=== PATIENT | female | born 1940 | race Caucasian/White ===

== ENCOUNTER 2021-08-09 11:24 | Inpatient (IN) | payer OTHER ==
[~2021-08-09] VITALS: Ht 167.6 cm; Wt 90.3 kg
[2021-08-09 13:17] LABS: HEMOGLOBIN 11.1 gm/dl (12.3-15.3); RED BLOOD COUNT 4.08 M/UL (4.00-5.10); WHITE BLOOD COUNT 4.7 K/UL (4.5-11.0)
[2021-08-09 13:41] LABS: BUN/CREATININE RATIO 15 (0-10)
[2021-08-09] MEDS ORDERED: TYLENOL EXTRA500 MG PO (18:16)
[2021-08-09] MEDS ORDERED: ALBUTEROL2.5 MG/3 M NEB (18:18)
[2021-08-09] MEDS ORDERED: PROAIR DIGIHAL90 MCG INH (18:18)
[2021-08-09] MEDS ORDERED: PLAVIX75 MG PO (18:19)
[2021-08-09] MEDS ORDERED: SYMBICORT 160-1 INHA INH (18:19)
[2021-08-09] MEDS ORDERED: CYCLOBENZAPRINE10 MG PO (18:20)
[2021-08-09] MEDS ORDERED: DRISDOL1250 MCG PO (18:21)
[2021-08-09] MEDS ORDERED: DOXYCYCLINE HY100 MG PO (18:21)
[2021-08-09] MEDS ORDERED: MUCUS RELIEF600 MG PO (18:21)
[2021-08-09] MEDS ORDERED: SINGULAIR10 MG PO (18:22)
[2021-08-09] MEDS ORDERED: IBU800 MG PO (18:22)
[2021-08-09] MEDS ORDERED: SPIRIVA RESPIMAT4 GM INH (18:23)
[2021-08-09] MEDS ORDERED: LORATADINE-D 21 EACH PO (18:24)
[2021-08-10 08:27] LABS: HEMOGLOBIN 10.8 gm/dl (12.3-15.3); RED BLOOD COUNT 3.95 M/UL (4.00-5.10); WHITE BLOOD COUNT 3.8 K/UL (4.5-11.0)
[2021-08-10 08:35] LABS: BUN/CREATININE RATIO 20 (0-10)
[2021-08-11 11:06] LABS: HEMOGLOBIN 11.5 gm/dl (12.3-15.3); RED BLOOD COUNT 4.13 M/UL (4.00-5.10); WHITE BLOOD COUNT 6.3 K/UL (4.5-11.0)
[2021-08-11 11:39] LABS: BUN/CREATININE RATIO 33 (0-10)
[2021-08-12 07:55] LABS: HEMOGLOBIN 11.7 gm/dl (12.3-15.3); RED BLOOD COUNT 4.33 M/UL (4.00-5.10); WHITE BLOOD COUNT 5.6 K/UL (4.5-11.0)
[2021-08-12 08:49] LABS: BUN/CREATININE RATIO 36 (0-10)
[2021-08-13 07:11] LABS: HEMOGLOBIN 11.2 gm/dl (12.3-15.3); RED BLOOD COUNT 4.12 M/UL (4.00-5.10); WHITE BLOOD COUNT 6.8 K/UL (4.5-11.0)
[2021-08-13 07:59] LABS: BUN/CREATININE RATIO 36 (0-10)
--- NOTE | 2021-08-13 12:59 | NUR ---
PT ROOM AIR SAT IS 88%. PT IS CURRENTLY ON O2 AT 3L NC
[2021-08-14 06:42] LABS: HEMOGLOBIN 11.9 gm/dl (12.3-15.3); RED BLOOD COUNT 4.33 M/UL (4.00-5.10); WHITE BLOOD COUNT 6.9 K/UL (4.5-11.0)
[2021-08-14 07:15] LABS: BUN/CREATININE RATIO 36 (0-10)
[2021-08-15 15:14] LABS: RED BLOOD COUNT 4.49 M/UL (4.00-5.10); WHITE BLOOD COUNT 6.8 K/UL (4.5-11.0)
[2021-08-15 15:57] LABS: BUN/CREATININE RATIO 35 (0-10)
[2021-08-15] MEDS ORDERED: CARAFATE 1 GM TA1 GM PO (17:14)
[2021-08-15] MEDS ORDERED: PROTONIX 40 MG40 M1 PO (17:18)
[2021-08-15] MEDS ORDERED: VIBRAMYCIN 100100 MG PO (17:18)
[2021-08-15] MEDS ORDERED: ELIQUIS2.5 MG PO (17:18)
[2021-08-15] MEDS ORDERED: OMNICEF 300 MG300 MG PO (17:18)
[2021-08-15] MEDS ORDERED: DECADRON6 MG PO (17:20)
[2021-08-15] MEDS ORDERED: PHENERGAN 12.12.5 M1 PO (17:27)
[2021-08-15] MEDS ORDERED: ZOFRAN 4 MG TAB4 MG PO (17:27)
[2021-08-15] MEDS ORDERED: LOPRESSOR 25 MG25 MG PO (17:31)
--- NOTE | 2021-08-16 02:47 | NUR ---
PATIENT WAS ARRANGED TO BE DC HOME WITH O2. [employer]SHIFT HAD ALL THE DISCHARGE DONE AND NOTIFIED FAMILY AND HH. UPON FAMILIES ARIVIAL IT WAS BROUGHT TO MY ATTENTION FROM THE TECH THAT THE O2 TANK THAT WAS DROPPED OFF FOR THE PATIENTS DC HOME WAS NOT WORKING. IT APPEARED TO BE COMPLETELY EMPTY. AFTER ATTEMPTING TO TURN THE TANK CRISTINA, USE THE ADJUSTMENT TOOL AND HAVE SEVERAL OTHER STAFF MEMBER ASSIST I CALLED THE COMPANY ON THE O2 TANK. I WAS INFORMED BY THAT COMPANY THAT THE PATIENT WAS NOT THEIR CLIENT. SO I PULLED THE HOME EQUIPTMENT INFO OFROM THE DC PACKET AND CONTACTED THE COMPANY. I SPOKE TO AN MICROBIOLOGY SOIL SCIENTIST THAT TOOK ALL THE INFO AND SAID I WOULD RECIEVE A CALL BACK WITH IN 30 MINUTES. I CONTACTED [employer] TO CALL [employer] TO INFORM OF SITUATION. THE GOAL WAS TO GET PATIENT HER O2 AND DC HOME. ONCE THE COMPANY CALLED BACK THEY INFORMED ME THAT SOMEONE WOULD BE HERE IN AN HOUR WITH A NEW TANK. I CONTACTED FAMILY AND EXPLAINED THE SITUATION AND APOLOGIZED FOR THE INCONVENIENCE. ONCE THE COMPANY CAME WITH THE REPLACEMENT TANK HE STATED THAT IT WAS AN ISSUE WITH THE REGULATOR TO WHY THE TANK WAS NOT WORKING PROPERLY. HE SWITCHED THE TANK OUT AND I CONTACTED THE FAMILY THAT THE PATIENT WAS READY FOR DC. PATIENT AND HER BELONGINGS WERE TRANSPORTED TO THE ER ENTRANCE TO MEET THE DAUGHTER FOR DC HOME.
== END 2021-08-15 21:30 | disposition home health service (06) | DRG 177 ==
LOC: ER1 11:24 → MED SURG 4 17:28 → CDU 17:28 → MED SURG 4 20:31
PROVIDERS: Physician Assistant; Student in an Organized Health Care Education/Training Program; ADMIT Internal Medicine
PROC: XW033E5 Introduction of Remdesivir Anti-infective into Peripheral Vein, Percutaneous Approach, New Technology Group 5 (ICD-10-PCS; principal; 2021-08-09)
PROC: 3E0333Z Introduction of Anti-inflammatory into Peripheral Vein, Percutaneous Approach (ICD-10-PCS; 2021-08-09)
DX: U07.1 COVID-19 (principal); J96.01 Acute respiratory failure with hypoxia; J12.82 Pneumonia due to coronavirus disease 2019; E87.1 Hypo-osmolality and hyponatremia; J44.0 Chronic obstructive pulmonary disease with (acute) lower respiratory infection; F17.210 Nicotine dependence, cigarettes, uncomplicated; E87.6 Hypokalemia; D63.1 Anemia in chronic kidney disease; Z85.118 Personal history of other malignant neoplasm of bronchus and lung; Z90.710 Acquired absence of both cervix and uterus; Z80.9 Family history of malignant neoplasm, unspecified
CPT/HCPCS: 36415; 36600; 71045; 80048; 80053; 82550; 82553; 82803; 83690; 83735; 84132; 84484; 85025; 85027; 85652; 86140; 93005; 94640; 94664; 94760; 96374; 96375; 97110-GP-CQ; 97116-GP-CQ; 97162; 97165; 97530; 97530-GP-CQ; 99285; C9113; J0248; J0456; J0696; J1100; J1335; J1650; J2405; J2550; J7030; U0002